=== PATIENT | female | born 1995 | race African-American/Black ===

== ENCOUNTER 2024-03-30 11:52 | Emergency (ER) | payer OTHER, SELFPAY | END 2024-03-30 12:23 | disposition home or self-care (01) | LOC: NAV ERS 11:52 | DX: O99.611 Diseases of the digestive system complicating pregnancy, first trimester (principal); K59.00 Constipation, unspecified; O99.331 Smoking (tobacco) complicating pregnancy, first trimester; Z87.891 Personal history of nicotine dependence; Z3A.01 Less than 8 weeks gestation of pregnancy | CPT/HCPCS: 99283 ==

== ENCOUNTER 2025-02-18 04:01 | Emergency (ER) | payer OTHER ==
[2025-02-18] MEDS ORDERED: Mag-Al Plus 1200/1200/120 MG (30 mL) UDCUP ONE (04:22)
[2025-02-18] MEDS ORDERED: Lidocaine Viscous Sol 2% 15 ml UD Cup ONE (04:22)
[2025-02-18 04:37] LABS: #Basophils 0.0 thou/uL (0.0-0.2); #Eosinophils 0.1 thou/uL (0.0-0.7); #Lymphocytes 1.6 thou/uL (1.20-3.40); #Monocytes 0.5 thou/uL (0.11-0.59); #Neutrophils 5.9 thou/uL (1.40-6.50); %Basophils 0.2 % (0.0-1.0); %Eosinophils 0.8 % (0.0-10.0); %Lymphocytes 19.2 % (21.0-51.0); %Monocytes 6.1 % (0.0-10.0); %Neutrophils 73.7 % (42.0-75.0); Hematocrit 38.0 % (36.0-47.0); Hemoglobin 12.6 g/dL (12.0-16.0); Mean Corpuscular Hemoglobin 27.0 pg (27.0-31.0); Mean Corpuscular Volume 81.3 fl (78.0-98.0); Platelet Count 259 10x3/uL (130-400); Red Blood Cell (RBC) Count 4.67 mill/uL (4.20-5.40); White Blood Cell (WBC) Count 8.0 10x3/uL (4.8-10.8)
[2025-02-18 04:45] LABS: BHCG - Serum Negative (NEGATIVE); Pregs Control Bar Appear? YES (CONTROL BAR)
[2025-02-18 04:55] LABS: ALT (SGPT) 88 U/L (Less than 34); AST (SGOT) 143 U/L (11-34); Albumin 4.3 g/dL (3.1-4.5); Alkaline Phosphatase 73 U/L (40-110); Anion Gap 15 mmol/L (10-20); BUN (Urea Nitrogen) 11 mg/dL (7.0-18.7); Bilirubin, Total 0.8 mg/dL (0.3-1.2); Calc. Creatinine Clearance 0 mL/min (70-130); Calcium 9.4 mg/dL (7.8-10.44); Carbon Dioxide 21 mmol/L (22-29); Chloride 108 mmol/L (98-107); Globulin 3.4 g/dL (2.4-3.5); Glucose 101 mg/dL (70-105); Lipase 43 U/L (8-78); Potassium 3.3 mmol/L (3.5-5.1); Sodium 141 mmol/L (136-145)
== END 2025-02-18 05:27 | disposition home or self-care (01) ==
LOC: NAV ERS 04:01
DX: R10.13 Epigastric pain (principal); Z87.891 Personal history of nicotine dependence
CPT/HCPCS: 36415; 80053; 83690; 84703; 85025; 99284

== ENCOUNTER 2025-04-24 22:54 | Emergency (ER) | payer OTHER ==
[2025-04-24] MEDS ORDERED: Lidocaine Viscous Sol 2% 15 ml UD Cup ONE (23:27)
[2025-04-24] MEDS ORDERED: Pantoprazole 40 MG VIAL ONE (23:27)
[2025-04-24] MEDS ORDERED: Mag-Al Plus 1200/1200/120 MG (30 mL) UDCUP ONE (23:27)
[2025-04-24 23:29] LABS: #Basophils 0.1 thou/uL (0.0-0.2); #Eosinophils 0.1 thou/uL (0.0-0.7); #Lymphocytes 2.5 thou/uL (1.20-3.40); #Monocytes 0.4 thou/uL (0.11-0.59); #Neutrophils 5.6 thou/uL (1.40-6.50); %Basophils 1.5 % (0.0-1.0); %Eosinophils 1.1 % (0.0-10.0); %Lymphocytes 28.6 % (21.0-51.0); %Monocytes 4.8 % (0.0-10.0); %Neutrophils 64.0 % (42.0-75.0); Hematocrit 40.8 % (36.0-47.0); Hemoglobin 13.8 g/dL (12.0-16.0); Mean Corpuscular Hemoglobin 27.2 pg (27.0-31.0); Mean Corpuscular Volume 80.1 fl (78.0-98.0); Platelet Count 281 10x3/uL (130-400); Red Blood Cell (RBC) Count 5.09 mill/uL (4.20-5.40); White Blood Cell (WBC) Count 8.7 10x3/uL (4.8-10.8)
[2025-04-24 23:44] LABS: ALT (SGPT) 46 U/L (Less than 34); AST (SGOT) 30 U/L (11-34); Albumin 4.5 g/dL (3.1-4.5); Alkaline Phosphatase 58 U/L (40-110); Anion Gap 15 mmol/L (10-20); BUN (Urea Nitrogen) 10 mg/dL (7.0-18.7); Bilirubin, Total 0.5 mg/dL (0.3-1.2); Calc. Creatinine Clearance 0 mL/min (70-130); Calcium 9.8 mg/dL (7.8-10.44); Carbon Dioxide 23 mmol/L (22-29); Chloride 109 mmol/L (98-107); Globulin 3.2 g/dL (2.4-3.5); Glucose 93 mg/dL (70-105); Lipase 39 U/L (8-78); Potassium 4.4 mmol/L (3.5-5.1); Sodium 143 mmol/L (136-145)
[2025-04-25 00:09] LABS: Bacteria/HPF None Seen HPF (None Seen); CAUTI Indications for Culture Dysuria,urgency,freq; Glucose, Urine (Dipstick) Negative (Negative); Leukocyte Negative (Negative); Protein, Urine (Dipstick) Negative (Neg-Trace); RBC/HPF None Seen HPF (0-3); Specific Gravity, Urine 1.025 (1.005-1.030); WBC/HPF 0-3 HPF (0-3)
[2025-04-25 00:10] LABS: Pregnancy Test - Urine (BHCG) Negative (Negative); Pregu Control Background? CLEAR/WHITE (CLR/WHITE); Pregu Control Bar Appear? YES (CONTROL BAR); Urine Culture Reflex No No
[2025-04-25 00:16] LABS: Cocaine Metabolite Screen Negative (Negative); THC/Cannabinoid Screen Negative (Negative); Tricyclic Screen Negative (Negative)
[2025-04-25] MEDS ORDERED: Sucralfate 1 GM TAB ONE (00:21)
== END 2025-04-25 00:44 | disposition home or self-care (01) ==
LOC: NAV ERS 22:54
DX: K29.70 Gastritis, unspecified, without bleeding (principal); Z79.890 Hormone replacement therapy
CPT/HCPCS: 80053; 80306; 81001; 81025; 83690; 85025; 96374; J2470

== ENCOUNTER 2025-05-06 07:44 | Emergency (ER) | payer OTHER ==
[2025-05-06] MEDS ORDERED: Ondansetron PF 4 MG/2 ML Vial ONE (08:20)
[2025-05-06] MEDS ORDERED: Mag-Al Plus 1200/1200/120 MG (30 mL) UDCUP ONE (08:20)
[2025-05-06] MEDS ORDERED: Pantoprazole 40 MG VIAL ONE (08:21)
[2025-05-06] MEDS ORDERED: Lidocaine Viscous Sol 2% 15 ml UD Cup ONE (08:21)
[2025-05-06 08:32] LABS: #Basophils 0.0 thou/uL (0.0-0.2); #Eosinophils 0.1 thou/uL (0.0-0.7); #Lymphocytes 2.0 thou/uL (1.20-3.40); #Monocytes 0.6 thou/uL (0.11-0.59); #Neutrophils 5.9 thou/uL (1.40-6.50); %Basophils 0.6 % (0.0-1.0); %Eosinophils 0.8 % (0.0-10.0); %Lymphocytes 23.0 % (21.0-51.0); %Monocytes 7.3 % (0.0-10.0); %Neutrophils 68.3 % (42.0-75.0); Hematocrit 40.1 % (36.0-47.0); Hemoglobin 13.8 g/dL (12.0-16.0); Mean Corpuscular Hemoglobin 27.4 pg (27.0-31.0); Mean Corpuscular Volume 79.5 fl (78.0-98.0); Platelet Count 272 10x3/uL (130-400); Red Blood Cell (RBC) Count 5.04 mill/uL (4.20-5.40); White Blood Cell (WBC) Count 8.7 10x3/uL (4.8-10.8)
[2025-05-06 08:49] LABS: ALT (SGPT) 191 U/L (Less than 34); AST (SGOT) 290 U/L (11-34); Albumin 4.3 g/dL (3.1-4.5); Alkaline Phosphatase 53 U/L (40-110); Anion Gap 13 mmol/L (10-20); BUN (Urea Nitrogen) 11 mg/dL (7.0-18.7); Bilirubin, Total 0.7 mg/dL (0.3-1.2); Calc. Creatinine Clearance 0 mL/min (70-130); Calcium 9.2 mg/dL (7.8-10.44); Carbon Dioxide 22 mmol/L (22-29); Chloride 109 mmol/L (98-107); Globulin 3.4 g/dL (2.4-3.5); Glucose 125 mg/dL (70-105); Lipase 60 U/L (8-78); Potassium 3.5 mmol/L (3.5-5.1); Sodium 140 mmol/L (136-145)
[2025-05-06] MEDS ORDERED: Iopamidol 370 76% 100 ML VIAL ONE (09:00)
[2025-05-06] MEDS ORDERED: Simethicone Chewable 80 MG TAB ONE (09:49)
[2025-05-06] MEDS ORDERED: Ketorolac Tromethamine 30 MG (1 mL) VIAL ONE (09:49)
[2025-05-06] MEDS ORDERED: Sucralfate 1 GM TAB ONE (09:49)
[2025-05-06 11:02] LABS: Glucose, Urine (Dipstick) Negative (Negative); Leukocyte Negative (Negative); Protein, Urine (Dipstick) 30 mg/dL (Neg-Trace); Specific Gravity, Urine 1.020 (1.005-1.030)
[2025-05-06 11:06] LABS: Pregnancy Test - Urine (BHCG) Negative (Negative); Pregu Control Background? CLEAR/WHITE (CLR/WHITE); Pregu Control Bar Appear? YES (CONTROL BAR)
[2025-05-06 11:15] LABS: CAUTI Indications for Culture Pelvic or flank pain; WBC/HPF 0-3 HPF (0-3)
[2025-05-06 11:16] LABS: Urine Culture Reflex No No
[2025-05-06 18:36] LABS: Hep A IgM AB NONREACTIVE (NonReactive); Hep A IgM S/CO 0.22 S/CO (0-0.79); Hep B Core IgM Index 0.08 S/CO (0-0.79); Hep B Surf Ag NONREACTIVE S/CO (NonReactive); Hep C IgG Ab NONREACTIVE S/CO (NonReactive); Hep C Index 0.09 S/CO (0-0.79)
== END 2025-05-06 12:47 | disposition home or self-care (01) ==
LOC: NAV ERS 07:44
DX: K29.00 Acute gastritis without bleeding (principal); K76.0 Fatty (change of) liver, not elsewhere classified
CPT/HCPCS: 74177; 80053; 80074; 81001; 81025; 83690; 85025; 96361; 96374; 96375; J1885; J2405; J2470; J7030; Q9967